=== PATIENT | male | born 1940 | race Caucasian/White ===

== ENCOUNTER 2017-01-13 08:04 | Emergency (ER) | payer MEDICARE ==
[~2017-01-13] VITALS: Ht 162.6 cm; Wt 65.8 kg
[2017-01-13] MEDS ORDERED: Lidocaine 1% Plain 30 ml INJ ONE (08:30)
[2017-01-13] MEDS ORDERED: Tetanus/Diptheria/Pertussis Vaccine 0.5ml Syr IM ONE (08:30)
[2017-01-13] MEDS ORDERED: Bacitracin Oint UD TOPIC ONE (08:30)
--- NOTE | 2017-01-13 08:56 | Emergency Room Report ---
History of Present Illness General Chief Complaint: Laceration Source: Patient Present Illness HPI Patient was carving wood. The cutting tool got caught on some grain and then slipped. He sliced into his left middle finger. He is right-handed. There was some pain and bleeding controlled with pressure. There is some numbness of the tip. Pain is 3/10, sharp and improving, not radiating. He's not sure when his last tetanus shot was. No other medical problems or somatic complaints. 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 Reviewed Nursing Documentation: PMH: Agreed, PSxH: Agreed Nursing Documentation-PMH Past Medical History: No Stated History Review of Systems Constitutional: Denies: fever Musculoskeletal: Reports: see HPI Skin: Reports: see HPI Neurological: Reports: see HPI Hematologic/Lymphatic: Reports: see HPI Physical Exam Vital Signs Date Time Temp Pulse Resp B/P (MAP) Pulse Ox O2 Delivery O2 Flow Rate FiO2 01/13/17 08:06 97.5 55 20 146/78 99 Room Air Sp02 EP Interpretation: reviewed, normal General Appearance: well appearing, no apparent distress Head: normocephalic, atraumatic Eyes: bilateral eye normal inspection, bilateral eye PERRL ENT: hearing grossly normal, normal voice Neck: full range of motion, supple Respiratory: no respiratory distress, speaking full sentences Gastrointestinal: scaphoid Musculoskeletal: normal range of motion, other - tendons intact Neurologic: alert, grossly normal - with some distal numbness beyond the cut Psychiatric: mood/affect normal Skin: laceration - L middle finger = 2 cm, pulp Procedures Laceration/Wound Repair Laceration/Wound Repair : Consent: Verbal Wound Location: other - L middle finger Wound's Depth, Shape: linear Wound Length (cm): 2 Wound Explored: clean Betadine Prep?: Yes Anesthesia: 1% Lidocaine - digital block Volume Anesthetic (ccs): 4 Wound Debrided: none Wound Repaired With: sutures Suture Size/Type: 5:0, nylon Layer Closure?: No Sterile Dressing Applied?: Yes Splint Applied?: No Patient Tolerated: Well Complications: None Medical Decision Making Diagnostic Impression: Primary Impression: Laceration of left middle finger Qualified Codes: S61.213A - Laceration without foreign body of left middle finger without damage to nail, initial encounter ER Course Patient with finger laceration needing sutures. Needs tetanus. Wound repaired. Tolerated well. Discussed sensory nerve growth. Patient stable for outpatient observation and treatment. Last Vital Signs Date Time Temp Pulse Resp B/P (MAP) Pulse Ox O2 Delivery O2 Flow Rate FiO2 01/13/17 09:17 97.5 56 18 142/76 100 Room Air Status: improved Disposition: HOME, SELF-CARE Condition: Improved Scripts Bacitracin (Bacitracin) 28.4 Gm Oint...g. 1 APPLIC TOPIC BID, #10 GM Prov: Elfego Lopez M.D. 01/13/17 Vitamin B Complex (B COMPLEX # 1) 1 Each Tablet 1 TAB ORAL DAILY, #30 TAB Prov: Elfego Lopez M.D. 01/13/17 Ibuprofen* (MOTRIN*) 600 Mg Tablet 600 MG ORAL Q6H Y for For Pain, #12 TAB Prov: Elfego Lopez M.D. 01/13/17 Referrals: NOT CHOSEN [facility]/,REFERRING (PCP) Elfego Lopez M.D. Jan 13, 2017 08:56
[2017-01-13] MEDS ORDERED: IBUPROFEN600 MG ORAL (09:03)
[2017-01-13] MEDS ORDERED: B COMPLEX # 11 EACH ORAL (09:03)
[2017-01-13] MEDS ORDERED: BACITRACIN15 GM TOPIC (09:03)
[2017-01-13 09:17] VITALS: BP 142/76
[2017-01-20] MEDS ORDERED: NKM (09:54)
== END 2017-01-13 09:19 | disposition home or self-care (01) ==
LOC: EMR 08:35 → EDBD 08:35 → EMR 09:19
DX: S61.213A Laceration without foreign body of left middle finger without damage to nail, initial encounter (principal); W26.0XXA Contact with knife, initial encounter; Y92.89 Other specified places as the place of occurrence of the external cause; Z23 Encounter for immunization
CPT/HCPCS: 12001; 90471; 90715; 99284; J2001

== ENCOUNTER → 2017-01-20 | Emergency (ER) | payer MEDICARE ==
[~2017-01-20] VITALS: Ht 162.6 cm; Wt 65.8 kg
[~2017-01-20] MED LIST: B COMPLEX # 11 EACH ORAL; BACITRACIN15 GM TOPIC; IBUPROFEN600 MG ORAL; NKM
[2017-01-20 09:59] VITALS: BP 149/75
[2017-01-20 10:11] VITALS: BP 149/75
--- NOTE | 2017-01-20 17:56 | Emergency Room Report ---
History of Present Illness General Chief Complaint: Wound Recheck/Suture Removal Source: Patient Present Illness HPI Patient is a 76-year-old male presented for wound check. Patient was noted to have the no complaints of pain or discharge. The patient's sutures placed approximately one week ago Allergies: Coded Allergies: No Known Allergies (Unverified , 01/13/17) Patient History Past Medical History: see triage record Reviewed Nursing Documentation: PMH: Agreed, PSxH: Agreed Nursing Documentation-PMH Past Medical History: No Stated History Review of Systems All Other Systems: negative except mentioned in HPI Physical Exam Vital Signs Date Time Temp Pulse Resp B/P (MAP) Pulse Ox O2 Delivery O2 Flow Rate FiO2 01/20/17 09:52 97.5 60 14 149/75 99 Room Air General Appearance: well appearing, no apparent distress, alert, GCS 15 Head: normocephalic, atraumatic ENT: hearing grossly normal, normal voice Neck: full range of motion, supple Respiratory: no respiratory distress, speaking full sentences Cardiovascular #1: normal inspection, regular rate, rhythm Musculoskeletal: no calf tenderness Neurologic: normal gait Psychiatric: mood/affect normal Skin: no rash Medical Decision Making Diagnostic Impression: Primary Impression: Encounter for wound re-check Additional Impression: Laceration of left middle finger ER Course Patient presented for wound check. Differential diagnosis included was not limited to infected wound, nonhealed wound, neuroma, healed wound. The patient presented to be infected however he does not appear to be ready for suture removal. The patient is advised to have a recheck in 3-4 days for further evaluation for possible removal Last Vital Signs Date Time Temp Pulse Resp B/P (MAP) Pulse Ox O2 Delivery O2 Flow Rate FiO2 01/20/17 10:11 97.5 14 149/75 99 Room Air 01/20/17 09:52 60 Status: improved Disposition: HOME, SELF-CARE Condition: Stable Referrals: NOT CHOSEN [facility]/MD,REFERRING Patient Instructions: Wound Check Yasmany Loaiza Jan 20, 2017 17:56
== END | disposition home or self-care (01) ==
LOC: EMR 10:07
DX: S61.213D Laceration without foreign body of left middle finger without damage to nail, subsequent encounter (principal); X58.XXXD Exposure to other specified factors, subsequent encounter; Z48.02 Encounter for removal of sutures
CPT/HCPCS: 99281

== ENCOUNTER 2017-01-25 09:55 | Emergency (ER) | payer MEDICARE ==
[~2017-01-25] VITALS: Ht 152.4 cm; Wt 65.8 kg
[2017-01-25] MEDS ORDERED: Bacitracin Oint UD TOPIC ONE (10:09)
[2017-01-25 10:35] VITALS: BP 146/73
--- NOTE | 2017-01-26 07:44 | Emergency Room Report ---
History of Present Illness General Chief Complaint: Wound Recheck/Suture Removal Source: Patient Present Illness HPI 76-year-old male presents ED for suture removal. Patient states he cut his left middle finger approximately 12 days ago and was repaired here. Is here for suture removal. Denies any pain. Denies any fevers or chills. States the wound is well-healing. No other aggravating relieving factors. Denies any other associated symptoms Allergies: Coded Allergies: No Known Allergies (Unverified , 01/13/17) Patient History Past Medical History: none Past Surgical History: none Pertinent Family History: none Social History: Denies: smoking, alcohol use, drug use Immunizations: UTD Reviewed Nursing Documentation: PMH: Agreed, PSxH: Agreed Nursing Documentation-PMH Past Medical History: No Stated History Review of Systems All Other Systems: negative except mentioned in HPI Physical Exam Vital Signs Date Time Temp Pulse Resp B/P (MAP) Pulse Ox O2 Delivery O2 Flow Rate FiO2 01/25/17 09:58 98.1 72 16 146/76 98 Room Air Sp02 EP Interpretation: reviewed, normal General Appearance: no apparent distress, alert, GCS 15, non-toxic Head: normocephalic Eyes: bilateral eye normal inspection, bilateral eye PERRL ENT: normal ENT inspection Neck: normal inspection Respiratory: normal inspection Cardiovascular #1: normal inspection Gastrointestinal: normal inspection Rectal: deferred Genitourinary: no CVA tenderness Musculoskeletal: normal inspection Neurologic: alert, oriented x3, responsive, motor strength/tone normal, sensory intact, speech normal Psychiatric: normal inspection Skin: other - wound well approximated. sutures in place. no induration/erythema Lymphatic: normal inspection Medical Decision Making Diagnostic Impression: Primary Impression: Encounter for removal of sutures ER Course Patient presents to the emergency department today for suture removal. patient' s wound appears well-healed, and sutures are ready to be removed today. Using sterile technique the sutures were removed patient tolerated procedure well without any difficulty. Patient was given device in how to care for the wound patient is advised followup with his private care doctor in 2-3 days and return to emergency room for any worsening conditions as needed Last Vital Signs Date Time Temp Pulse Resp B/P (MAP) Pulse Ox O2 Delivery O2 Flow Rate FiO2 01/25/17 10:35 98.1 65 16 146/73 99 Room Air Status: improved Disposition: HOME, SELF-CARE Condition: Stable Referrals: NOT CHOSEN [facility]/,REFERRING (PCP) Patient Instructions: Suture Removal, Care After DARNELL KIDD M.D. Jan 26, 2017 07:44
== END 2017-01-25 10:35 | disposition home or self-care (01) ==
LOC: EMR 10:30
DX: S61.213D Laceration without foreign body of left middle finger without damage to nail, subsequent encounter (principal); W45.8XXD Other foreign body or object entering through skin, subsequent encounter; Z48.02 Encounter for removal of sutures
CPT/HCPCS: 99281